=== PATIENT | male | born 1980 | race Caucasian/White ===

== ENCOUNTER 2020-12-03 09:33 | Emergency (ER) | payer OTHER ==
[2020-12-03] MEDS ORDERED: NAPROXEN500 MG PO ×2 (10:23→11:18)
== END 2020-12-03 12:17 | disposition home or self-care (01) ==
LOC: FER 09:33
DX: S82.65XA Nondisplaced fracture of lateral malleolus of left fibula, initial encounter for closed fracture (principal); F17.200 Nicotine dependence, unspecified, uncomplicated; X58.XXXA Exposure to other specified factors, initial encounter; Y92.410 Unspecified street and highway as the place of occurrence of the external cause
CPT/HCPCS: 73610

== ENCOUNTER 2021-10-14 22:54 | Emergency (ER) | payer OTHER ==
[~2021-10-14 22:54] MED LIST: NAPROXEN500 MG PO
[2021-10-15] MEDS ORDERED: NAPROXEN500 MG PO (00:15)
[2021-10-15] MEDS ORDERED: PERCOCET 5-3251 EACH PO (00:16)
== END 2021-10-15 00:56 | disposition home or self-care (01) ==
LOC: FER 22:54
DX: M25.511 Pain in right shoulder (principal); F17.210 Nicotine dependence, cigarettes, uncomplicated; X50.1XXA Overexertion from prolonged static or awkward postures, initial encounter; Y93.89 Activity, other specified; Y92.009 Unspecified place in unspecified non-institutional (private) residence as the place of occurrence of the external cause
CPT/HCPCS: 73030; 96372; J1170; J1885